=== PATIENT | male | born 1980 | race American Indian/Alaskan Native ===

== ENCOUNTER 2018-06-18 07:31 | Emergency (ER) | payer OTHER ==
[2018-06-18 07:48] VITALS: BP 161/90; PULSE 86; RESP 19; TEMP 98.5; O2SAT 99
[2018-06-18] MEDS ORDERED: Lidocaine 5% Patch TD STA (07:54)
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
[2018-06-18] MEDS ORDERED: Lidocaine 5% Patch TD ONE (08:02)
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
== END 2018-06-18 08:49 | disposition home or self-care (01) ==
LOC: C.ER 07:31
DX: M54.5 Low back pain (principal); V43.53XA Car driver injured in collision with pick-up truck in traffic accident, initial encounter